=== PATIENT | male | born 1970 | race Caucasian/White ===

== ENCOUNTER 2017-01-31 15:03 | Observation (INO) | payer OTHER ==
[2017-01-31 15:47] VITALS: BMI 37.0
[2017-01-31] MEDS ORDERED: HEMOQUE TEST 1 EACH EACH ONE (15:53)
[2017-01-31] MEDS ORDERED: ACETAMINOPHEN 325 MG TABLET (FP) PO ONE (15:58)
[2017-01-31] MEDS ORDERED: ACETAMINOPHEN 325 MG TABLET (FP) ONE (16:16)
--- NOTE | 2017-01-31 16:28 | PDOC ---
History of Present Illness - General History Source: Patient (As per program staff, intense body shaking with no loss of consciousness or falling. ) Exam Limitations: No Limitations <Brando Flores - Last Filed: 01/31/17 17:32> - General History Source: Patient, Parent(s) (The father informed us that had similar episode when his nails were trimmed) Exam Limitations: Clinical Condition - History of Present Illness Timing/Duration: unsure Severity: moderate <Morena Luciano - Last Filed: 01/31/17 20:05> - General Chief Complaint: Blood Pressure Problem Stated Complaint: HIGH BLOOD PRESSURE Time Seen by Provider: 01/31/17 15:06 Past History - Past Medical History Diabetes: Yes Other medical history: Mental Retardation. Seizure like episodes x2. Comment:: 01/31/17 17:39 Reports having seizure in past when his nail was clipped. <Brando Flores - Last Filed: 01/31/17 17:32> - Travel Traveled outside of the country in the last 30 days: No Close contact w/someone who was outside of country & ill: No - Past Medical History Diabetes: Yes HTN: Yes Hypercholesterolemia: Yes Psychiatric Problems: Yes - Family Disease History Family Disease History: Heart Disease: Father (Cardiac stents), Other: Mother ( CVA) - Immunization History Immunization Up to Date: No - Suicide/Smoking/Psychosocial Hx Smoking History: Never smoked Have you smoked in the past 12 months: No Hx Alcohol Use: No Drug/Substance Use Hx: No Substance Use Type: None Hx Substance Use Treatment: No <Morena Luciano - Last Filed: 01/31/17 20:05> - Past Medical History Allergies/Adverse Reactions: Allergies Allergy/AdvReac Type Severity Reaction Status Date / Time No Known Allergies Allergy Verified 02/23/16 14:27 Home Medications: Ambulatory Orders Amlodipine Besylate [Norvasc -] 10 mg PO DAILY 02/19/14 Cholecalciferol (Vitamin D3) [Vitamin D] 2,000 unit PO DAILY 02/19/14 Metformin HCl [Glucophage] 1,000 mg PO BID 02/19/14 Quetiapine Fumarate [Seroquel -] 50 mg PO HS 02/19/14 Atorvastatin Ca [Lipitor] 20 mg PO HS 10/19/15 Benztropine Mesylate 0.5 mg PO DAILY 10/19/15 Hydrochlorothiazide 25 mg PO DAILY 10/19/15 Quinapril HCl [Accupril] 20 mg PO DAILY 10/19/15 Review of Systems - Review of Systems Able to Perform ROS?: Yes Cardiac (ROS): Yes: Chest Pain : Yes: Dysuria <Brando Flores - Last Filed: 01/31/17 17:32> *Physical Exam - Vital Signs Last Vital Signs Temp Pulse Resp BP Pulse Ox 98.3 F 72 16 123/84 97 01/31/17 15:05 01/31/17 15:47 01/31/17 15:47 01/31/17 15:47 01/31/17 15:47 - Physical Exam Respiratory/Chest: positive: Lungs Clear Gastrointestinal/Abdominal: positive: Other (Overweight. ) Neurologic: positive: Fully Oriented, Alert, Other (Fully conversing. ) <Brando Flores - Last Filed: 01/31/17 17:32> - Vital Signs Last Vital Signs Temp Pulse Resp BP Pulse Ox 98.3 F 72 16 123/84 97 01/31/17 15:05 01/31/17 15:47 01/31/17 15:47 01/31/17 15:47 01/31/17 15:47 <Morena Luciano S - Last Filed: 01/31/17 20:05> Heart Score/ECG Review - History History: Slightly suspicious - Electrocardiogram EKG: Significant ST-depression - Age Age: 45-65 - Risk Factors Risk Factors Heart Score: Yes Hx Hypertension, Yes Positive family hx of cardiac disease, Yes Hx Obesity Based on the list above the patient has:: 1-2 risk factors - Troponin Troponin: </= normal limit - Score Heart Score - Total: 4 <Morena Luciano S - Last Filed: 01/31/17 20:05> ED Treatment Course - Medications Given in the ED: ED Medications Discontinued Medications Generic Name Dose Route Start Last Admin Trade Name Freq PRN Reason Stop Dose Admin Acetaminophen 650 mg 01/31/17 15:58 01/31/17 15:59 Tylenol - PO 01/31/17 15:59 650 mg NOW ONE Administration <Brando Flores - Last Filed: 01/31/17 17:32> - LABORATORY CBC & Chemistry Diagram: 01/31/17 17:50 01/31/17 17:50 - Medications Given in the ED: ED Medications Discontinued Medications Generic Name Dose Route Start Last Admin Trade Name Katelyn PRN Reason Stop Dose Admin Acetaminophen 650 mg 01/31/17 15:58 01/31/17 15:59 Tylenol - PO 01/31/17 15:59 650 mg NOW ONE Administration <Morena Luciano - Last Filed: 01/31/17 20:05> *DC/Admit/Observation/Transfer - Attestations Scribe Attestion: 01/31/17 17:40 Documentation prepared by Brando Flores, acting as medical receptionist for Morena Luciano MD/DO. <Brando Flores - Last Filed: 01/31/17 17:32> - Discharge Dispostion Admit: No <Morena Luciano - Last Filed: 01/31/17 20:05> Diagnosis at time of Disposition: Anxiety - Discharge Dispostion Disposition: HOME Condition at time of disposition: Good - Referrals Referrals: Janeen Adam [Primary Care Provider] -
[2017-01-31 18:11] LABS: BASOPHIL 0.7 % (0-2.0); EOSINOPHIL 0.6 % (0-4.5); MCHC 34.2 g/dl (32.0-35.9); MEAN CELL VOLUME 84.9 fl (80-96); MEAN PLT VOLUME 9.7 fl (7.5-11.1); NEUTROPHILS 60.5 % (42.8-82.8); PLATELET COUNT 217 K/MM3 (134-434); RDW 13.5 % (11.9-15.9); WHITE BLOOD COUNT 11.5 K/mm3 (4.0-10.8)
[2017-01-31 18:20] LABS: ALBUMIN 4.2 g/dl (3.5-5.0); ALK PHOS 96 U/L (32-92); ANION GAP 10 (8-16); BILIRUBIN,TOTAL 0.2 mg/dl (0.2-1.0); CALCIUM 9.3 mg/dl (8.4-10.2); CO2 25 mmol/L (22-28); CREATININE 0.6 mg/dl (0.6-1.3); GLUCOSE,RANDOM 93 mg/dl (74-106); SGOT/AST 29 U/L (10-42); SGPT/ALT 25 U/L (10-40); TOT PROT 8.4 g/dl (6.4-8.3)
[2017-01-31 18:43] LABS: URINE APPEARANCE Clear; URINE BILIRUBIN Negative (NEGATIVE); URINE BLOOD Negative (NEGATIVE); URINE GLUCOSE (UA) Negative (NEGATIVE); URINE KETONE Negative (NEGATIVE); URINE LEUK ESTERASE Negative (NEGATIVE); URINE NITRITE Negative (NEGATIVE); URINE PROTEIN Negative (NEGATIVE); URINE UROBILINOGEN 0.2 (0.2-1.0)
[2017-01-31 18:44] LABS: URINE COLOR YELLOW
[2017-01-31] MEDS ORDERED: ASPIRIN 81 MG CHEWABLE TABLETS ONE (19:57)
[2017-01-31] MEDS: ASPIRIN 81 MG CHEWABLE TABLETS PO SCH (19:59)
--- NOTE | 2017-01-31 21:56 | HP ---
CHIEF COMPLAINT: seizure like activity PCP: Kia HISTORY OF PRESENT ILLNESS: This is a 46 year old male with a past medical history significant for HTN, HLD , DM who presented to the ED with 2 episodes of shaking activity at his day program. Staff did not report LOC. Pt states that it was hot in his program and the hot air was blowing on him and he passed out twice. Unclear how reliable of a historian pt is due to his mental retardation. Family not present at time of exam. As per ED note, pt with h/o seizure like activity once in past when nails being trimmed. Pt denies any complaints on exam including CP, SOB, palpitations , abdominal pain, N/V. ER course was notable for: (1) ECG with T wave inversions (2) Trop neg x 1 (3) Recent Travel: pt denies PAST MEDICAL HISTORY: HTN HLD DM Mental retardation Social History: Smoking: pt denies Alcohol: pt denies Drugs: pt denies Family History: father with cardiac stents mother s/p CVA Allergies No Known Allergies Allergy (Verified 02/23/16 14:27) HOME MEDICATIONS: 3 Medication Instructions Recorded Amlodipine Besylate [Norvasc -] 10 mg PO DAILY 02/19/14 Cholecalciferol (Vitamin D3) 2,000 unit PO DAILY 02/19/14 [Vitamin D] Metformin HCl [Glucophage] 1,000 mg PO BID 02/19/14 Quetiapine Fumarate [Seroquel -] 50 mg PO HS 02/19/14 Atorvastatin Ca [Lipitor] 20 mg PO HS 10/19/15 Benztropine Mesylate 0.5 mg PO DAILY 10/19/15 Hydrochlorothiazide 25 mg PO DAILY 10/19/15 Quinapril HCl [Accupril] 20 mg PO DAILY 10/19/15 REVIEW OF SYSTEMS CONSTITUTIONAL: Absent: fever, chills, diaphoresis, generalized weakness, malaise, loss of appetite, weight change HEENT: Absent: rhinorrhea, nasal congestion, throat pain, throat swelling, difficulty swallowing, mouth swelling, ear pain, eye pain, visual changes CARDIOVASCULAR: Absent: chest pain, syncope, palpitations, irregular heart rate, lightheadedness , peripheral edema RESPIRATORY: Absent: cough, shortness of breath, dyspnea with exertion, orthopnea, wheezing, stridor, hemoptysis GASTROINTESTINAL: Absent: abdominal pain, abdominal distension, nausea, vomiting, diarrhea, constipation, melena, hematochezia GENITOURINARY: Absent: dysuria, frequency, urgency, hesitancy, hematuria, flank pain, genital pain MUSCULOSKELETAL: Absent: myalgia, arthralgia, joint swelling, back pain, neck pain SKIN: Absent: rash, itching, pallor HEMATOLOGIC/IMMUNOLOGIC: Absent: easy bleeding, easy bruising, lymphadenopathy, frequent infections ENDOCRINE: Absent: unexplained weight gain, unexplained weight loss, heat intolerance, cold intolerance NEUROLOGIC: seizure-like activity Absent: headache, focal weakness or paresthesias, dizziness, unsteady gait, mental status changes, bladder or bowel incontinence PSYCHIATRIC: Absent: anxiety, depression, suicidal or homicidal ideation, hallucinations. PHYSICAL EXAMINATION Vital Signs - 24 hr 3 01/31/17 01/31/17 01/31/17 15:05 15:47 22:19 Temperature 98.3 F 98.6 F Pulse Rate 74 73 Pulse Rate [ 72 Left Radial] Respiratory 16 16 18 Rate Blood Pressure 139/87 142/79 Blood Pressure 123/84 [Right Arm] O2 Sat by Pulse 96 97 97 Oximetry (%) GENERAL: Awake, alert, and fully oriented, in no acute distress. HEAD: Normal with no signs of trauma. EYES: Pupils equal, round and reactive to light, extraocular movements intact, sclera anicteric, conjunctiva clear. No lid lag. EARS, NOSE, THROAT: Ears normal, nares patent, oropharynx clear without exudates. Moist mucous membranes. NECK: Normal range of motion, supple without lymphadenopathy, JVD, or masses. LUNGS: Breath sounds equal, clear to auscultation bilaterally. No wheezes, and no crackles. No accessory muscle use. HEART: Regular rate and rhythm, normal S1 and S2 without murmur, rub or gallop. ABDOMEN: Soft, nontender, not distended, normoactive bowel sounds, no guarding, no rebound, no masses. No hepatomegaly or splenomegaly. MUSCULOSKELETAL: Normal range of motion at all joints. No bony deformities or tenderness. No CVA tenderness. UPPER EXTREMITIES: 2+ pulses, warm, well-perfused. No cyanosis. No clubbing. No peripheral edema. LOWER EXTREMITIES: 2+ pulses, warm, well-perfused. No calf tenderness. No peripheral edema. NEUROLOGICAL: Cranial nerves II-XII intact. Normal speech. Normal gait. PSYCHIATRIC: Cooperative. Good eye contact. Appropriate mood and affect. SKIN: Warm, dry, normal turgor, no rashes or lesions noted, normal capillary refill. Laboratory Results - last 24 hr 3 01/31/17 01/31/17 01/31/17 17:50 17:50 17:50 WBC 11.5 H RBC 5.59 Hgb 16.2 D Hct 47.5 MCV 84.9 MCH 29.0 MCHC 34.2 RDW 13.5 Plt Count 217 D MPV 9.7 Neutrophils % 60.5 Lymphocytes % 30.0 Monocytes % 8.2 Eosinophils % 0.6 Basophils % 0.7 D Sodium 133 L Potassium 3.8 D Chloride 98 Carbon Dioxide 25 Anion Gap 10 BUN 8 D Creatinine 0.6 Creat Clearance w eGFR > 60 Random Glucose 93 Calcium 9.3 Total Bilirubin 0.2 D AST 29 D ALT 25 Alkaline Phosphatase 96 H D Troponin I < 0.03 L Total Protein 8.4 H D Albumin 4.2 Urine Color Urine Appearance Urine pH Ur Specific [place] Urine Protein Urine Glucose (UA) Urine Ketones Urine Blood Urine Nitrite Urine Bilirubin Urine Urobilinogen Ur Leukocyte Esterase 3 Urine Color Yellow 01/31/17 18:19 Urine Appearance Clear 01/31/17 18:19 Urine pH 6.0 (4.5-8) 01/31/17 18:19 Ur Specific [place] 1.010 (1.005-1.025) 01/31/17 18:19 Urine Protein Negative (NEGATIVE) 01/31/17 18:19 Urine Glucose (UA) Negative (NEGATIVE) 01/31/17 18:19 Urine Ketones Negative (NEGATIVE) 01/31/17 18:19 Urine Blood Negative (NEGATIVE) 01/31/17 18:19 Urine Nitrite Negative (NEGATIVE) 01/31/17 18:19 Urine Bilirubin Negative (NEGATIVE) 01/31/17 18:19 Ur Leukocyte Esterase Negative (NEGATIVE) 01/31/17 18:19 ECG Normal sinus rhythm Vent rate 74, QTC 410 inverted T waves lead 3, aVF When compared with ECG on 02/23/16, T wave inversion more pronounced in lead 3, new in aVF Radiology results Portable chest x-ray, AP sitting. Since 02/23/2016, the cardiac silhouette remains within normal limits in size with mild unfolding of the aortic arch. Mild bilateral increased lung markings are present. Mediastinum and visualized osseous structures appear intact Impression No significant interval change or acute lung disease is present. Reported By: Ada Bravo MD 01/31/17 1919 ASSESSMENT/PLAN: 46yM with PMH HTN, HLD, DM, Mental retardation presented to the ED with seizure- like activity. He is being admitted for further observation. Seizure like activity - Ct head ordered - consider neuro consult - monitor on tele, r/o arrhythmia as etiology ECG changes - troponin neg x 1, will trend x 2 more - monitor on tele - cardiology consult given heart score of 6 HTN/HLD - cont home medications DM - cont home medications, stop metformin if pt receives any IV contrast DVT PPX - chemoprophylaxis deferred at this time as expected LOS <48h FEN - pt tolerating po fluids - BMP in am - diabetic diet as tolerated Dispo: Pt currently requires inpatient management of his emergent condition. Visit type - Emergency Visit Emergency Visit: Yes ED Registration Date: 01/31/17 Care time: The patient presented to the Emergency Department on the above date and was hospitalized for further evaluation of their emergent condition. - New Patient This patient is new to me today: Yes Date on this admission: 01/31/17 - Critical Care Critical Care patient: No
[2017-01-31] MEDS ORDERED: ATORVASTATIN CA 20 MG TABLET (FP) PO SCH (23:00)
[2017-01-31] MEDS ORDERED: QUEtiapine FUMARATE 25 MG TABLET (FP) PO SCH ×2 (23:00→23:31)
[2017-01-31] MEDS ORDERED: QUEtiapine FUMARATE 50 MG TABLET PO SCH (23:00)
[2017-02-01] MEDS: INSULIN SLIDING SCALE (NOVOLOG) 1 VIAL SQ SCH ×2 (06:39→11:50)
[2017-02-01 06:52] VITALS: TEMP 98
[2017-02-01] MEDS ORDERED: metFORMIN HCL 500 MG TABLET (FP) PO SCH (07:00)
--- NOTE | 2017-02-01 07:15 | CON.CARD ---
Consult Consult Specialty:: Cardiology Referred by:: Dr. Luciano Reason for Consultation:: Abnormal ECG - History of Present Illness Chief Complaint: Seizures? History of Present Illness: 46 yo male with HTN, hyperlipidmeia, DM, and prior history of seizure-like activity (?), who presented to the ED yesterday evening with 2 reported episodes "shaking" while at his day program. No syncope was reported. However, when the patient was asked this morning what kind of symptoms he had yesterday, he reported transient dizziness. He denied any chest pain, palpitatoins, or dyspnea. Patient is currently without any complaints this morning. ECG in ED demonstrated T wave in III and non-specific T wave abnormality in aVF, which are slightly more prominent compared to 02/2016 ECG. Trops (-) x2. Cardiology consult was requested due to ECG abnormalities. Patient answers questions but is unable to provide details regarding his medical history. Attempts to contact his family at the listed home number were unsuccessful this morning. - History Source History Provided By: Patient, Medical Record Limitations to Obtaining History: Other (Mental retardation) - Past Medical History Cardio/Vascular: Yes: HTN, Hyperlipdemia Endocrine: Yes: Diabetes Mellitus Additional Medical History: Mental retardation - Alcohol/Substance Use Hx Alcohol Use: No History of Substance Use: reports: None - Smoking History Smoking history: Never smoked Have you smoked in the past 12 months: No Home Medications - Allergies Allergies/Adverse Reactions: Allergies Allergy/AdvReac Type Severity Reaction Status Date / Time No Known Allergies Allergy Verified 02/23/16 14:27 - Home Medications Home Medications: Ambulatory Orders Amlodipine Besylate [Norvasc -] 10 mg PO DAILY 02/19/14 Cholecalciferol (Vitamin D3) [Vitamin D] 2,000 unit PO DAILY 02/19/14 Metformin HCl [Glucophage] 1,000 mg PO BID 02/19/14 Quetiapine Fumarate [Seroquel -] 50 mg PO HS 02/19/14 Atorvastatin Ca [Lipitor] 20 mg PO HS 10/19/15 Benztropine Mesylate 0.5 mg PO DAILY 10/19/15 Hydrochlorothiazide 25 mg PO DAILY 10/19/15 Quinapril HCl [Accupril] 20 mg PO DAILY 10/19/15 Family Disease History - Family Disease History Family Disease History: Heart Disease: Father, Other: Mother (CVA) Review of Systems - Review of Systems Constitutional: reports: No Symptoms Eyes: reports: No Symptoms HENT: reports: No Symptoms Cardiovascular: reports: Chest Pain. denies: Edema, Palpitations, Shortness of Breath Respiratory: denies: Cough, Hemoptysis, Orthopnea, SOB, SOB on Exertion, Wheezing Genitourinary: reports: No Symptoms Neurological: reports: Dizziness (resolved per patient) Hematology/Lymphatic: reports: No Symptoms Vital Signs: Vital Signs Temperature 98.0 F 02/01/17 06:26 Pulse Rate 68 02/01/17 06:26 Respiratory Rate 20 02/01/17 06:26 Blood Pressure 129/83 02/01/17 06:26 O2 Sat by Pulse Oximetry (%) 99 02/01/17 06:51 Constitutional: Yes: No Distress Eyes: Yes: Conjunctiva Clear, EOM Intact HENT: Yes: Atraumatic, Normocephalic Respiratory: Yes: CTA Bilaterally Gastrointestinal: Yes: Normal Bowel Sounds, Soft. No: Tenderness JVD: No Carotid Bruit: No PMI: Non-Displaced Heart Sounds: Yes: S1, S2 Murmur: No: Systolic Murmur Edema: No Peripheral Pulses WNL: Yes Neurological: Yes: Alert, Oriented, Cran Nerves II-XII Intact Psychiatric: Yes: Other (Normal affect/mood) - Other Data Labs, Other Data: Troponin, BNP 01/31/17 23:30 Troponin I < 0.03 L Troponin, BNP 01/31/17 23:30 Troponin I < 0.03 L Imaging - Results Chest X-ray: Report Reviewed, Image Reviewed (Poor quality portable film. No cardiomegaly. No effusions. Increased lungs markings likely due to poor inspiratory effort.) Cat Scan: Report Reviewed Assessment/Plan 46 yo male with HTN, hyperlipidmeia, DM, and prior history of seizure-like activity (?), who was admitted for observation for reported "shaking" episodes, but patient only reported transient dizziness yesterday. Head CT negative for mass or bleed. Currently without symptoms. Cardiology consult was requested by ED for evaluation of abnormal ECG which demonstrated T wave inversion in III and non-specific T wave abnormality in aVF , which are slightly more prominent compared to 02/2016 ECG. Trops (-) x2. No complaints of chest pain or dyspnea. Attempts to contact the family to inquire about medical history were unsuccessful this morning (called listed home number at ~7:30 AM without answer) . RECS: Given absence of symptoms to suggest cardiac disease and negative trops x2, patient may be discharged from cardiac standpoint. Patient would benefit from outpatient cardiac follow-up. He can follow-up in our office in 2-3 weeks (or with another application trainer as desired by his primary care provider). No further inpatient cardiac testing is clinically indicated at this time. Will see prn. Please call with questions.
--- NOTE | 2017-02-01 07:23 | EKG ---
Test Reason : Blood Pressure : / mmHG Vent. Rate : 061 BPM Atrial Rate : 061 BPM P-R Int : 148 ms QRS Dur : 092 ms QT Int : 424 ms P-R-T Axes : 002 028 -01 degrees QTc Int : 426 ms POOR DATA QUALITY, INTERPRETATION MAY BE ADVERSELY AFFECTED SINUS RHYTHM NONSPECIFIC T WAVE ABNORMALITY in aVF T wave inversion in III WHEN COMPARED WITH ECG OF 31-JAN-2017 19:21, NO SIGNIFICANT CHANGE WAS FOUND Confirmed by KATE RAPHAEL MD ([id number]) on 02/01/2017 7:22:50 AM Referred By: Confirmed By:KATE RAPHAEL MD
--- NOTE | 2017-02-01 07:24 | EKG ---
Test Reason : Blood Pressure : / mmHG Vent. Rate : 074 BPM Atrial Rate : 074 BPM P-R Int : 132 ms QRS Dur : 090 ms QT Int : 370 ms P-R-T Axes : 009 031 -13 degrees QTc Int : 410 ms SINUS RHYTHM T wave inversion in III NONSPECIFIC T WAVE ABNORMALITY in aVF ABNORMAL ECG WHEN COMPARED WITH ECG OF 23-FEB-2016 14:20, T wave abnromalities in III and aVF are slightly more prominent Confirmed by KATE RAPHAEL MD ([id number]) on 02/01/2017 7:23:42 AM Referred By: DR DIETRICH Confirmed By:KATE RAPHAEL MD
--- NOTE | 2017-02-01 07:54 | DS ---
Physical Exam: SUBJECTIVE: Patient seen and examined, patient is siting in bed, denies any chest pain or shortness of breath. OBJECTIVE: This is a 46 year old male with a past medical history significant for HTN, HLD , DM who presented to the ED with 2 episodes of shaking activity at his day program. Staff did not report LOC. Pt states that it was hot in his program and the hot air was blowing on him and he passed out twice. Unclear how reliable of a historian pt is due to his mental retardation. Family not present at time of exam. As per ED note, pt with h/o seizure like activity once in past when nails being trimmed. Pt denies any complaints on exam including CP, SOB, palpitations , abdominal pain, N/V. ER course was notable for: (1) ECG with T wave inversions (2) Trop neg x 1 Vital Signs Period Temp Pulse Resp BP Sys/Chi Pulse Ox Last 24 Hr 98.0 F-98.6 F 68-73 18-20 129-142/79-83 97-99 PHYSICAL EXAM GENERAL: The patient is awake, alert, and fully oriented, in no acute distress. HEAD: Normal with no signs of trauma. EYES: PERRL, extraocular movements intact, sclera anicteric, conjunctiva clear. ENT: Ears normal, nares patent, oropharynx clear without exudates, moist mucous membranes. NECK: Trachea midline, full range of motion, supple. LUNGS: Breath sounds equal, clear to auscultation bilaterally, no wheezes, no crackles, no accessory muscle use. HEART: Regular rate and rhythm, S1, S2 without murmur, rub or gallop. ABDOMEN: Soft, nontender, nondistended, normoactive bowel sounds, no guarding, no rebound, no hepatosplenomegaly, no masses. EXTREMITIES: 2+ pulses, warm, well-perfused, no edema. NEUROLOGICAL: Cranial nerves II through XII grossly intact. Normal speech, gait not observed. PSYCH: Normal mood, normal affect. SKIN: Warm, dry, normal turgor, no rashes or lesions noted. LABS Laboratory Results - last 24 hr 01/31/17 02/01/17 23:30 06:21 POC Glucometer 87 Troponin I < 0.03 L Laboratory Tests 10/10/17 10/10/17 10/11/17 17:50 23:30 07:00 Troponin I < 0.03 L < 0.03 L < 0.[address] of head: intracranial hemmorhage or lesion Chest xray: no effusions no infiltrate noted HOSPITAL COURSE: Patient was admitted from the emergency department to observation. Patient had a reported seizure activity prior to arrival to the emergency department. Patient denies any loss of bowel or bladder function or postictal event. CT of head noted. 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 Troponin x 3 wnl. Cardiology consulted and followed. patient has a past medical history of hypertension, norvasc and accupril consulted and followed. patient has a past medical history of NIDDM, metformin continue throughout admission PLAN - continue all medications as prescribed - follow up with cardiology within 2 to 3 weeks. Date of Admission:01/31/17 Date of Discharge: 02/01/17 Minutes to complete discharge: 45 Discharge Summary Reason For Visit: CHEST PAIN Current Active Problems Anxiety (Acute) Condition: Good - Instructions Diet, Activity, Other Instructions: resume diabetic/low sodium diet continue all medications as prescribed please follow up with the rn documentation specialist within 2 weeks please follow up with your primary care physician within 1 week if any new or persistent symptoms develop please return to the emergency department Referrals: Grant Yang MD [Staff Physician] - 2 Weeks Janeen Adam [Primary Care Provider] - Disposition: HOME - Home Medications Comprehensive Discharge Medication List: Ambulatory Orders Amlodipine Besylate [Norvasc -] 10 mg PO DAILY 02/19/14 Cholecalciferol (Vitamin D3) [Vitamin D] 2,000 unit PO DAILY 02/19/14 Metformin HCl [Glucophage] 1,000 mg PO BID 02/19/14 Quetiapine Fumarate [Seroquel -] 50 mg PO HS 02/19/14 Atorvastatin Ca [Lipitor] 20 mg PO HS 10/19/15 Benztropine Mesylate 0.5 mg PO DAILY 10/19/15 Hydrochlorothiazide 25 mg PO DAILY 10/19/15 Quinapril HCl [Accupril] 20 mg PO DAILY 10/19/15 This patient is new to me today: Yes Date on this admission: 02/01/17 Emergency Visit: Yes ED Registration Date: 01/31/17 Care time: The patient presented to the Emergency Department on the above date and was hospitalized for further evaluation of their emergent condition. Critical Care patient: No - Discharge Referral Referred to [facility] No
[2017-02-01 08:27] LABS: BASOPHIL 0.4 % (0-2.0); EOSINOPHIL 1.2 % (0-4.5); MCH 28.8 pg (25.7-33.7); MCHC 33.9 g/dl (32.0-35.9); MEAN CELL VOLUME 84.8 fl (80-96); MEAN PLT VOLUME 9.7 fl (7.5-11.1); NEUTROPHILS 59.8 % (42.8-82.8); PLATELET COUNT 171 K/MM3 (134-434); WHITE BLOOD COUNT 9.8 K/mm3 (4.0-10.8)
[2017-02-01 09:08] LABS: ANION GAP 8 (8-16); CO2 27 mmol/L (22-28); CPK 151 IU/L (39-308); CREATININE 0.6 mg/dl (0.6-1.3); GLUCOSE,RANDOM 98 mg/dl (74-106); MAGNESIUM 1.7 mg/dL (1.8-2.4); PHOSPHOROUS 3.9 mg/dl (2.5-4.6)
[2017-02-01 09:41] LABS: TROPONIN I (DFP) < 0.03 ng/ml (0.03-0.50)
[2017-02-01] MEDS: ASPIRIN 81 MG CHEWABLE TABLETS PO SCH (09:50)
[2017-02-01] MEDS ORDERED: HYDROCHLOROTHIAZIDE 25 MG TABLET (FP) PO SCH (10:00)
[2017-02-01] MEDS ORDERED: CHOLECALCIFEROL (VITAMIN D3) 1,000 UNIT TABLET (FP) PO SCH (10:00)
[2017-02-01] MEDS ORDERED: BENZTROPINE MESYLATE 0.5 MG TABLET (FP) PO SCH (10:00)
[2017-02-01] MEDS ORDERED: QUINAPRIL HCL 20 MG TABLET (FP) PO SCH (10:00)
[2017-02-01] MEDS ORDERED: amLODIPine BESYLATE 10 MG TABLET (FP) PO SCH (10:00)
[2017-02-01 10:03] VITALS: BP 143/76; PULSE 76
[2017-02-01] MEDS ORDERED: MAGNESIUM SULFATE 2 GM in SODIUM CHLORIDE 100 ML IVPB ONE (10:30)
[2017-02-01] MEDS ORDERED: MAGNESIUM SULF 50% (8.12 MEQ/2 ML-1 GM VIAL) IVPB ONE (11:00)
== END 2017-02-01 12:57 | disposition home or self-care (01) ==
LOC: FER 15:03 → UNDOADMIN 19:13 → FM/S 19:13 → INTOOBSV 20:20 → FM/S 20:20 → UNDOADMOB 20:20 → FM/S 20:51
PROVIDERS: ADMIT Internal Medicine; ATTEND Nurse Practitioner Family
DX: F41.9 Anxiety disorder, unspecified (principal); F79 Unspecified intellectual disabilities; I10 Essential (primary) hypertension; E11.9 Type 2 diabetes mellitus without complications; E78.5 Hyperlipidemia, unspecified; Z79.84 Long term (current) use of oral hypoglycemic drugs
CPT/HCPCS: 36415; 70450-TC; 71010-TC; 80048; 80053; 81003; 82550; 82553; 83735; 84100; 84484; 85025; 93005; 99283-25; G0378

== ENCOUNTER 2018-01-07 13:00 | Emergency (ER) | payer OTHER ==
--- NOTE | 2018-01-07 13:09 | PDOC ---
History of Present Illness - General Chief Complaint: Respiratory Stated Complaint: COUGH Time Seen by Provider: 01/07/18 13:08 History Source: Patient, Family (Pt's father and primary caregiver present for interview) Exam Limitations: No Limitations - History of Present Illness Initial Comments: 47 y/o male presenting to ER via private auto complaining of non-productive cough and diffuse chest pain for the past two days. Chest pain is worrisome only when coughing. Endorses rhinorrhea, rhinitis, subjective fever and diaphoresis. Denies shortness of breath, palpitations, or syncope. Has not trialed OTC medication for symptoms. Has not sought care at PCP. PCP: Malvin Sorto Hx: - Developmental Delay - HTN - HLD - DM Past History - Past Medical History Allergies/Adverse Reactions: Allergies Allergy/AdvReac Type Severity Reaction Status Date / Time No Known Allergies Allergy Verified 01/07/18 13:01 Home Medications: Ambulatory Orders Amlodipine Besylate [Norvasc -] 10 mg PO DAILY 02/19/14 Cholecalciferol (Vitamin D3) [Vitamin D] 2,000 unit PO DAILY 02/19/14 Quetiapine Fumarate [Seroquel -] 50 mg PO HS 02/19/14 metFORMIN HCL [Glucophage] 1,000 mg PO BID 02/19/14 Atorvastatin Ca [Lipitor] 20 mg PO HS 10/19/15 Benztropine Mesylate 0.5 mg PO DAILY 10/19/15 Hydrochlorothiazide 25 mg PO DAILY 10/19/15 Quinapril HCl [Accupril -] 20 mg PO DAILY 10/19/15 Diabetes: Yes HTN: Yes Hypercholesterolemia: Yes Psychiatric Problems: Yes - Family Disease History Family Disease History: Heart Disease: Father (Cardiac stents), Other: Mother ( CVA) - Immunization History Immunization Up to Date: No - Suicide/Smoking/Psychosocial Hx Smoking History: Never smoked Have you smoked in the past 12 months: No Hx Alcohol Use: No Drug/Substance Use Hx: No Substance Use Type: None Hx Substance Use Treatment: No Review of Systems - Review of Systems Able to Perform ROS?: Yes Is the patient limited Afghan proficient: No Constitutional: Yes: Diaphoresis (chronic and unchanged), Fever. No: Chills Respiratory: Yes: Cough. No: Shortness of Breath Cardiac (ROS): No: Chest Pain, Palpitations, Syncope ABD/GI: No: Constipated, Diarrhea, Nausea, Vomiting Musculoskeletal: Yes: See HPI, Muscle Pain. No: Back Pain *Physical Exam - Physical Exam Comments: Constitutional: Well-developed, well-nourished, obese male in no acute distress. Observed ambulating in and around department without distress. Pt friendly and conversant with several members of staff without coughing or apparent respiratory distress. Alert and oriented x4. Answered all questions appropriately and completely. Speech was non-labored, non-pressured. Head: Normocephalic. No obvious external signs of trauma. Eyes: Sclerae white. Conjunctiva moist and not injected. EARS: Hearing grossly intact. NOSE: No ainsley nasal discharge. THROAT: Oral cavity and pharynx normal. No inflammation, swelling, exudate, or lesions. Neck: Supple, trachea is midline. Cardiovascular: Regular rate and regular rhythm. No murmur, rubs, clicks, or gallops. Peripheral pulses: Radial pulses full. Respiratory: Infrequent cough during physical exam. Breathing unlabored. Equal chest rise and fall. Clear to auscultation bilaterally. No stridor, no wheezing , no rhonchi. Gastrointestinal: abdomen is soft, non-tender, non-distended. Neuro: Alert and oriented. Moving all four extremities spontaneously. Gait normal. Skin: Warm, dry, and intact. Psych: Affect: friendly, appropriate. Mood: normal. Medical Decision Making - Medical Decision Making *Reviewed vital signs, nursing notes, and prior visit documentation (if available). 47 y/o male presenting with nonproductive cough x2 days. Suspect chest pain is secondary to coughing. Afebrile on arrival. Vitals unremarkable for hypotension or tachycardia. No consolidation or adventitious lung sounds. Suspect URI versus acute bronchitis. Low suspicion for pneumonia, asthma, COPD. Will obtain CXR to further evaluate. CXR per my wet read: Airway midline, no bony abnormalities, normal cardiac shadow, no infiltrate or effusion, no evidence of pulmonary edema, no pneumothorax. Suspect URI. Discussed imaging and laboratory results with pts father. Answered all questions. Provided return precautions. Father expressed verbal understanding and agreement with plan to discharge home with outpatient follow up. 16:51 F/u telephone call with pts father. Informed him of the possible right pulmonary nodule. Father stated he would make an appointment with PCP for this week. *DC/Admit/Observation/Transfer Diagnosis at time of Disposition: Cough, Chest pain in adult - Discharge Dispostion Disposition: HOME Condition at time of disposition: Good Decision to Admit order: No - Referrals - Patient Instructions Printed Discharge Instructions: DI for Cough -- Adult Additional Instructions: Your chest xray was normal today. Your symptoms are likely because of a viral infection. You can take over the counter Tylenol or Advil as needed for pain. Take as directed on the package insert. Do not exceed the recommended dosage. Follow up with your primary care doctor, especially if your symptoms do not go away after 7 days as this can be a sign of a bacterial infection. Go to the nearest emergency department if your condition worsens or you feel like you need additional emergency evaluation. Print Language: BELIZEAN - Post Discharge Activity
[2018-01-07 13:47] VITALS: BP 151/98; PULSE 96; TEMP 98.4; BMI 37.3
--- NOTE | 2018-01-07 14:11 | PDOC ---
Attending Attestation - Resident Resident Name: Gerald Yoder - ED Attending Attestation I have performed the following: I have examined & evaluated the patient, The case was reviewed & discussed with the resident, I agree w/resident's findings & plan, Exceptions are as noted - HPI HPI: 47 yo M history HTN, HL, DM presents with 2 days of congestion, cough, sweating. He states the sweating is chronic. Congestion and cough are new onset. - Physicial Exam PE: GENERAL: Awake, alert, and fully oriented, in no acute distress HEAD: No signs of trauma EYES: PERRLA, EOMI, sclera anicteric, conjunctiva clear ENT: Auricles normal inspection, hearing grossly normal, nares patent, oropharynx clear without exudates. Moist mucosa NECK: Normal ROM, supple, no lymphadenopathy, JVD, or masses LUNGS: Breath sounds equal, clear to auscultation bilaterally. No wheezes, and no crackles HEART: Regular rate and rhythm, normal S1 and S2, no murmurs, rubs or gallops ABDOMEN: Soft, nontender, normoactive bowel sounds. No guarding, no rebound. No masses EXTREMITIES: Normal range of motion, no edema. No clubbing or cyanosis. No cords, erythema, or tenderness NEUROLOGICAL: Cranial nerves II through XII grossly intact. Normal speech, normal gait SKIN: Warm, Dry, normal turgor, no rashes or lesions noted. - Medical Decision Making Sxs likely due to viral URI. CXR no significant findings. Stable for DC home.
== END 2018-01-07 14:19 | disposition home or self-care (01) ==
LOC: FER 13:00
DX: R07.9 Chest pain, unspecified (principal); R05 Cough; I10 Essential (primary) hypertension; E11.9 Type 2 diabetes mellitus without complications; E78.00 Pure hypercholesterolemia, unspecified; F99 Mental disorder, not otherwise specified; Z95.5 Presence of coronary angioplasty implant and graft
CPT/HCPCS: 71046-TC-FY; 99282-25

== ENCOUNTER 2018-10-11 16:45 | Emergency (ER) | payer OTHER ==
[2018-10-11 16:53] VITALS: BP 115/65; PULSE 88; TEMP 98.6; BMI 38.4
--- NOTE | 2018-10-11 17:10 | PDOC ---
History of Present Illness - General Chief Complaint: Vomiting/Diarrhea Stated Complaint: VOMITING, DIARRHEA Time Seen by Provider: 10/11/18 16:50 - History of Present Illness Initial Comments: 10/11/18 17:11 The patient is a 48 year old male with a PMH of mild MR, HTN, HLD, and NIDDM presents to our ED c/o vomiting and abdominal pain. Past History - Past Medical History Allergies/Adverse Reactions: Allergies Allergy/AdvReac Type Severity Reaction Status Date / Time No Known Allergies Allergy Verified 10/11/18 16:46 Home Medications: Ambulatory Orders Amlodipine Besylate [Norvasc -] 10 mg PO DAILY 02/19/14 Cholecalciferol (Vitamin D3) [Vitamin D] 2,000 unit PO DAILY 02/19/14 Quetiapine Fumarate [Seroquel -] 50 mg PO HS 02/19/14 metFORMIN HCL [Glucophage] 1,000 mg PO BID 02/19/14 Atorvastatin Ca [Lipitor] 20 mg PO HS 10/19/15 Benztropine Mesylate 0.5 mg PO DAILY 10/19/15 Hydrochlorothiazide 25 mg PO DAILY 10/19/15 Quinapril HCl [Accupril -] 20 mg PO DAILY 10/19/15 COPD: No Diabetes: Yes HTN: Yes Hypercholesterolemia: Yes Psychiatric Problems: Yes - Family Disease History Family Disease History: Heart Disease: Father (Cardiac stents), Other: Mother ( CVA) - Immunization History Immunization Up to Date: No - Suicide/Smoking/Psychosocial Hx Smoking History: Never smoked Have you smoked in the past 12 months: No Information on smoking cessation initiated: No Hx Alcohol Use: No Drug/Substance Use Hx: No Substance Use Type: None Hx Substance Use Treatment: No *Physical Exam - Vital Signs Last Vital Signs Temp Pulse Resp BP Pulse Ox 98.6 F 88 16 115/65 100 10/11/18 16:45 10/11/18 16:45 10/11/18 16:45 10/11/18 16:45 10/11/18 16:45 ED Treatment Course - LABORATORY CBC & Chemistry Diagram: 10/11/18 17:25 10/11/18 17:25 Medical Decision Making - Medical Decision Making 10/11/18 19:07 48 year old male with abdominal pain and vomiting HPI and clinical exam limited by patient's *DC/Admit/Observation/Transfer Diagnosis at time of Disposition: Abdominal pain - Discharge Dispostion Disposition: HOME Condition at time of disposition: Good Decision to Admit order: No - Referrals - Patient Instructions Printed Discharge Instructions: DI for Abdominal Pain-Adult, DI for Vomiting - - Adult Additional Instructions: Drink plenty of water and advance your diet as tolerated. Return to the Emergency Department for any new/worsening/concerning symptoms. - Post Discharge Activity
[2018-10-11] MEDS ORDERED: SODIUM CHLORIDE 0.9% 500 ML INFUS.BAG IV ONE (17:11)
[2018-10-11] MEDS ORDERED: ONDANSETRON 4 MG/2 ML VIAL IVPUSH ONE (17:12)
[2018-10-11] MEDS ORDERED: ONDANSETRON 4 MG/2 ML VIAL ONE (17:30)
[2018-10-11 17:36] LABS: BASO % 0.7 % (0-2.0); EOS % 0.5 % (0-4.5); HEMATOCRIT 48.2 % (35.4-49); LYMPH % 23.6 % (8-40); MCHC 33.2 g/dl (32.0-35.9); MEAN CELL VOLUME 87.4 fl (80-96); MEAN PLT VOLUME 9.5 fl (7.5-11.1); MONO % 8.7 % (3.8-10.2); NEUT % 66.5 % (42.8-82.8); PLATELET COUNT 185 K/MM3 (134-434); RBC 5.52 M/mm3 (4.00-5.60); RDW 13.1 % (11.9-15.9); WHITE BLOOD COUNT 9.6 K/mm3 (4.0-10.8)
[2018-10-11 17:51] LABS: BILIRUBIN,TOTAL 1.3 mg/dl (0.2-1); CALCIUM 8.5 mg/dl (8.5-10); CREATININE 0.9 mg/dl (0.55-1.3); POTASSIUM 4.2 mmol/L (3.5-5.1); TOT PROT 7.9 g/dl (6.4-8.2)
--- NOTE | 2018-10-11 17:52 | PDOC ---
Attending Attestation - Resident Resident Name: Lissette Jules - ED Attending Attestation I have performed the following: I have examined & evaluated the patient, The case was reviewed & discussed with the resident, I agree w/resident's findings & plan, Exceptions are as noted - HPI HPI: 10/11/18 17:50 48 yo M h/o MR, htn hld here with co n/v x 2 and generalized abd pain. pt states started yesterday . had emesis x 2. denies testicular pain. no urinary sxs, no travel. no sick contacts. no rash. stool loose watery. no other complaints. no h/o abd surgery. - Physicial Exam PE: 10/11/18 17:50 awake alert lungs clear bilaterally. systolic murmu 2/6, no r/g. abd soft mild llq rlq ttp. no rebound no guarding. testicular exam nontender. uncircumcised. ext wwp no rash. wwp. nuero alert oriented . - Medical Decision Making 10/11/18 17:51 48 yo male h/o mr htn hld here with c/o n/v /d mild lower quad ttp. differential colitis, gastroenteritis. diverticulitis, uti, plan ct a/p ua labs iv hydration antiemetic. 10/11/18 18:53 pt labs unremarkable. ua negative. ct done and pending. signed out to oncoming physician pending results of ct. if negative. PO trial and dc home if tolerating PO.
== END 2018-10-11 19:21 | disposition home or self-care (01) ==
LOC: FER 16:45
DX: R10.9 Unspecified abdominal pain (principal); E11.9 Type 2 diabetes mellitus without complications; I10 Essential (primary) hypertension; E78.00 Pure hypercholesterolemia, unspecified; F99 Mental disorder, not otherwise specified; F79 Unspecified intellectual disabilities
CPT/HCPCS: 36415; 74177-TC; 80053; 81003; 85025; 87086; 99282-25

== ENCOUNTER 2019-01-07 09:18 | Emergency (ER) | payer OTHER | END 2019-01-07 11:21 | disposition home or self-care (01) | LOC: FER 09:18 ==

== ENCOUNTER 2021-09-17 10:15 | Emergency (ER) | payer OTHER ==
[2021-09-17 10:27] VITALS: BP 132/83; PULSE 95; TEMP 98.2; BMI 37.1
== END 2021-09-17 11:34 | disposition home or self-care (01) ==
LOC: JERFT 10:15
DX: S90.211A Contusion of right great toe with damage to nail, initial encounter (principal); W22.8XXA Striking against or struck by other objects, initial encounter
CPT/HCPCS: 73660-TC-FY; 99283-25

== ENCOUNTER 2022-04-22 12:35 | Emergency (ER) | payer OTHER ==
[2022-04-22 12:44] VITALS: BP 150/90; PULSE 89; RESP 18; TEMP 98.5; BMI 36.3
[2022-04-22] MEDS ORDERED: ONDANSETRON 4 MG/2 ML VIAL IVPUSH ONE (13:20)
[2022-04-22] MEDS ORDERED: LACTATED RINGERS SOLUTION 1000 ML INFUS.BAG IV ONE (13:20)
[2022-04-22] MEDS ORDERED: KETOROLAC TROMETHAMINE 15 MG/ML VIAL IVPUSH ONE (13:28)
[2022-04-22] MEDS ORDERED: ONDANSETRON 4 MG/2 ML VIAL ONE (13:38)
[2022-04-22] MEDS ORDERED: KETOROLAC TROMETHAMINE 15 MG/ML VIAL ONE (13:38)
[2022-04-22 14:17] LABS: BASO % 0.4 % (0-2.0); HEMATOCRIT 46.4 % (35.4-49); LYMPH % 18.6 % (8-40); MCH 27.6 pg (25.7-33.7); MCHC 32.2 g/dl (32.0-35.9); MEAN CELL VOLUME 85.7 fl (80-96); MEAN PLT VOLUME 8.6 fl (7.5-11.1); MONO % 9.8 % (3.8-10.2); NEUT % 70.2 % (42.8-82.8); PLATELET COUNT 192 10^3/uL (134-434); RBC 5.42 M/mm3 (4.00-5.60); RDW 14.1 % (11.9-15.9); WHITE BLOOD COUNT 13.6 K/mm3 (4.0-10.0)
[2022-04-22 14:41] LABS: CALCIUM 8.5 mg/dL (8.5-10.1)
[2022-04-22 14:42] LABS: ALBUMIN 3.1 g/dl (3.4-5.0); BLOOD UREA NITROGEN 7.8 mg/dL (7-18)
[2022-04-22 14:45] LABS: CREATININE 0.7 mg/dL (0.55-1.3)
[2022-04-22 14:46] LABS: BILIRUBIN,TOTAL 0.2 mg/dL (0.2-1); TOT PROT 7.2 g/dl (6.4-8.2)
[2022-04-22 16:16] LABS: URINE APPEARANCE CLEAR; URINE BILIRUBIN NEGATIVE (NEGATIVE); URINE COLOR YELLOW; URINE GLUCOSE (UA) NEGATIVE (NEGATIVE); URINE KETONE NEGATIVE (NEGATIVE); URINE LEUK ESTERASE NEGATIVE (NEGATIVE); URINE NITRITE NEGATIVE (NEGATIVE); URINE PROTEIN NEGATIVE (NEGATIVE)
== END 2022-04-22 17:29 | disposition home or self-care (01) ==
LOC: JER 12:35
PROC: 3E033GC Introduction of Other Therapeutic Substance into Peripheral Vein, Percutaneous Approach (ICD-10-PCS; principal; 2022-04-22)
DX: R11.2 Nausea with vomiting, unspecified (principal); R19.7 Diarrhea, unspecified
CPT/HCPCS: 0241U-QW; 36415; 71046-TC-FY; 80053; 81003; 83690; 85025; 87086; 87651; 99285-25

== ENCOUNTER 2023-08-30 11:26 | Emergency (ER) | payer OTHER ==
[2023-08-30 11:55] VITALS: BP 141/78; PULSE 90; RESP 18; BMI 39.6
[2023-08-30 11:59] VITALS: TEMP 100.1
[2023-08-30] MEDS ORDERED: ACETAMINOPHEN 325 MG TABLET (FP) ONE (12:08)
[2023-08-30] MEDS: ACETAMINOPHEN 325 MG TABLET (FP) PO ONE (12:10)
== END 2023-08-30 12:21 | disposition home or self-care (01) ==
LOC: FER 11:26
DX: R05.9 Cough, unspecified (principal); R09.81 Nasal congestion; R11.10 Vomiting, unspecified; Z20.822 Contact with and (suspected) exposure to COVID-19
CPT/HCPCS: 0241U-QW; 99283-25

== ENCOUNTER 2024-07-27 04:48 | Emergency (ER) | payer OTHER ==
[2024-07-27 04:56] VITALS: BP 142/74; PULSE 86; RESP 18; TEMP 98.6; BMI 37.2
[2024-07-27] MEDS ORDERED: ACETAMINOPHEN 325 MG TABLET (FP) ONE (05:16)
[2024-07-27] MEDS: ACETAMINOPHEN 325 MG TABLET (FP) PO ONE (05:22)
[2024-07-27 06:12] LABS: THROAT:GRP A STREP NOT DETECTED (NOTDETECTED)
== END 2024-07-27 06:48 | disposition home or self-care (01) ==
LOC: JER 04:48
DX: J10.1 Influenza due to other identified influenza virus with other respiratory manifestations (principal); R50.9 Fever, unspecified; R09.89 Other specified symptoms and signs involving the circulatory and respiratory systems
CPT/HCPCS: 0241U-QW; 71046-TC-FY; 87651; 99284-25

== ENCOUNTER 2024-10-07 09:48 | Emergency (ER) | payer OTHER ==
[2024-10-07 10:01] VITALS: BP 131/76; PULSE 86; RESP 19; TEMP 97.7; BMI 39.4
[2024-10-07] MEDS: ACETAMINOPHEN 1000 MG/100 ML BAG IVPB ONE (11:16)
[2024-10-07] MEDS: FAMOTIDINE 20 MG/50 ML IVPB 20 MG/50 ML MG IVPB ONE (11:16)
[2024-10-07] MEDS: ONDANSETRON 4 MG/2 ML VIAL IVPUSH ONE (11:16)
[2024-10-07] MEDS: SODIUM CHLORIDE 1,000 ML IV STA (11:16)
[2024-10-07] MEDS ORDERED: ONDANSETRON 4 MG/2 ML VIAL ONE (11:17)
[2024-10-07] MEDS ORDERED: ACETAMINOPHEN INJECTION 100 ML ONE (11:17)
[2024-10-07] MEDS ORDERED: FAMOTIDINE 20 MG/50 ML IVPB 20 MG/50 ML MG IVPB ONE (11:18)
[2024-10-07 11:28] LABS: VENOUS O2 SATURATION 62.7 % (70-80); VENOUS PCO2 47.2 mmHg (38-52); VENOUS PH 7.374 (7.310-7.410)
[2024-10-07 11:31] LABS: ABSOLUTE IMMATURE GRANULOCYTES 0.03 x10^3/uL (0.0-0.031); BASOPHILS # 0.01 x10^3/uL (0.01-0.08); HEMATOCRIT 48.8 % (40.1-51.0); MCHC 32.8 g/dl (32.3-36.5); MEAN CELL VOLUME 85.6 fl (79.0-92.2); MEAN PLT VOLUME 10.9 fl (9.4-12.4); MONOCYTE # 0.49 x10^3/uL (0.30-0.82); MONOCYTE % 4.6 % (5.3-12.2); PLATELET COUNT 182 x10^3/uL (163-337)
[2024-10-07 12:00] LABS: CALCIUM 9.9 mg/dL (8.5-10.1)
[2024-10-07 12:01] LABS: ALBUMIN 3.8 g/dl (3.4-5.0); BLOOD UREA NITROGEN 12.9 mg/dL (7-18); MAGNESIUM 1.8 mg/dL (1.8-2.4)
[2024-10-07 12:04] LABS: CREATININE 0.9 mg/dL (0.55-1.3)
[2024-10-07 12:06] LABS: BILIRUBIN,TOTAL 0.5 mg/dL (0.2-1); TOT PROT 7.8 g/dl (6.4-8.2)
== END 2024-10-07 15:11 | disposition home or self-care (01) ==
LOC: JER 09:48
PROC: 3E033GC Introduction of Other Therapeutic Substance into Peripheral Vein, Percutaneous Approach (ICD-10-PCS; principal; 2024-10-07)
PROC: 3E033GC Introduction of Other Therapeutic Substance into Peripheral Vein, Percutaneous Approach (ICD-10-PCS; 2024-10-07)
PROC: 3E033NZ Introduction of Analgesics, Hypnotics, Sedatives into Peripheral Vein, Percutaneous Approach (ICD-10-PCS; 2024-10-07)
DX: R11.2 Nausea with vomiting, unspecified (principal); R19.7 Diarrhea, unspecified; R50.9 Fever, unspecified; R42 Dizziness and giddiness; R10.31 Right lower quadrant pain; R10.32 Left lower quadrant pain
CPT/HCPCS: 36415; 74177-TC; 80053; 82803; 83605; 83735; 85025; 93005; 93010; 96365; 96375; 99285-25